=== PATIENT | female | born 1995 | race Caucasian/White ===

== ENCOUNTER 2024-02-21 05:36 | Emergency (ER) | payer MEDICAID ==
[2024-02-21 08:02] LABS: BASOPHILS % 0.4 % (0.0-2.0); EOSINOPHILS % 2.2 % (0.0-5.0); HEMOGLOBIN. 14.1 g/dL (12.0-16.0); LYMPHOCYTES % 54.3 % (20.0-50.0); MEAN CORPUSCULAR HGB CONC 33.5 g/dL (31.0-37.0); MEAN CORPUSCULAR VOLUME 89.5 fL (81.0-99.0); MEAN PLATELET VOLUME 10.4 fl (7.4-10.4); NEUTROPHILS % 35.1 % (40.0-76.0); PLATELET 297 x1000/uL (130-400); RED BLOOD CELL COUNT 4.69 mill/uL (4.2-5.4); RED CELL DISTRIBUTION WIDTH 13.9 % (11.6-14.6); WHITE BLOOD COUNT 6.5 x1000/uL (4.5-11.0)
[2024-02-21] MEDS: DEXAMETHASONE 4MG/ML 1ML VIAL IV ONE (08:06)
[2024-02-21 08:13] LABS: CHLORIDE 106 mEq/L (98-107); POTASSIUM 3.4 mEq/L (3.5-5.1); SODIUM 140 mEq/L (136-145)
[2024-02-21 08:14] LABS: CARBON DIOXIDE 24 mEq/L (21-32)
[2024-02-21 08:19] LABS: CREATININE 0.8 mg/dL (0.6-1.0); GLUCOSE 129 mg/dL (70-105); UREA NITROGEN BLOOD 11 mg/dL (9-23)
[2024-02-21 08:21] LABS: ALANINE AMINOTRANSFERASE < 7 IU/L (10-49); ALBUMIN 4.7 g/dL (3.2-4.8); ASPARTATE AMINOTRANSFERASE 15 IU/L (<34); BILIRUBIN TOTAL 0.8 mg/dL (0.1-1.0); PROTEIN TOTAL 7.5 g/dL (6.0-8.3)
[2024-02-21 08:54] LABS: HCG SCREEN NEGATIVE
[2024-02-21] MEDS ORDERED: EPIN0.3P3 IM (09:35)
[2024-02-21 09:47] VITALS: BP 122/70; PULSE 80; RESP 16; TEMP 98.7
== END 2024-02-21 09:46 | disposition home or self-care (01) ==
LOC: ER 05:49
DX: T78.2XXA Anaphylactic shock, unspecified, initial encounter (principal); Z20.822 Contact with and (suspected) exposure to COVID-19; Y92.89 Other specified places as the place of occurrence of the external cause
CPT/HCPCS: 80053; 84703; 85025; 36415; 96374; 99283; 87426; J1100; Z7610 ×3